=== PATIENT | female | born 1955 ===

== ENCOUNTER → 2018-06-30 21:18 | Outpatient (REF) | payer OTHER, SELFPAY ==
[2018-06-30 21:36] LABS: Add Manual Diff / Slide Review NO; Basophils Percent Auto 0.9 % (0-2); Eosinophils Percent Auto 2.8 % (2-4); Hematocrit 39.2 % (36-46); Hemoglobin 12.3 g/dL (12.0-16.0); Lymphocytes Percent Auto 16.4 % (25-40); Mean Corpuscular HGB Conc 31.4 % (30-36); Mean Corpuscular Volume 79.4 fL (80-100); Monocytes Percent Auto 7.2 % (3-14); Neutrophils Absolute Auto 5100 /uL (3000-5900); Neutrophils Percent Auto 72.7 % (50-75); Platelet Count 110 X10^3/uL (150-400); Red Blood Cell Count 4.93 X10^6/uL (4.0-5.2); Red Cell Distribution Width 18.8 % (11.6-14.8)
[2018-06-30 21:37] LABS: Alanine Aminotransferase 49 IU/L (9-52); Albumin 4.4 g/dL (3.5-5.0); Albumin Globulin Ratio 1.5 (1.0-2.8); Alkaline Phosphatase 110 U/L (38-126); Aspartate Aminotransferase 82 IU/L (14-36); BUN Creatinine Ratio 14.4 (6-22); Bilirubin Total 2.1 mg/dL (0.2-1.3); Blood Urea Nitrogen 13 mg/dL (7-17); Calcium 9.9 mg/dL (8.4-10.2); Carbon Dioxide 24 mmol/L (22-32); Chloride 103 mmol/L (98-107); Estimated Glomerular Filt Rate > 60.0 mL/min (>60); Globulin 2.9 g/dL (1.7-4.1); Glucose 93 mg/dL (80-110); HEMOLYSIS < 15 (0-50); Potassium 3.7 mmol/L (3.4-5.1); Sodium 141 mmol/L (137-145); Total Protein 7.3 g/dL (6.3-8.2)
[2018-06-30 22:09] LABS: Thyroid Stimulating Hormone 1.68 uIU/mL (0.47-4.68)
[2018-06-30 23:04] LABS: Free T3, Triiodothyronine Free 3.12 pg/mL (2.77-5.27); Free T4, Direct Thyroxine 0.86 ng/dL (0.78-2.19)
[2018-07-02 18:01] LABS: Sex Hormone Binding Globulin 101 nmol/L (14-73)
[2018-07-03 14:02] LABS: PSA Total 1.49 ng/mL (< 4.01)
[2018-07-04 17:34] LABS: Testosterone Free 44.6 pg/mL (0.1-6.4); Testosterone Total 555 ng/dL (2-45)
== END ==
LOC: LAB 21:18
PROVIDERS: Visit Provider Naturopath
DX: Z13.89 Encounter for screening for other disorder (principal); D50.9 Iron deficiency anemia, unspecified; R53.83 Other fatigue; G43.101 Migraine with aura, not intractable, with status migrainosus
CPT/HCPCS: 80053; 82728; 84153; 84154; 84270; 84402; 84403; 84439; 84443; 84481; 85025